=== PATIENT | male | born 2000 ===

== ENCOUNTER 2020-12-13 12:13 | Emergency (ER) | payer SELFPAY ==
[2020-12-13] MEDS ORDERED: ONDANSETRON 4 MG/2 ML INJ IV ONE (12:18)
[2020-12-13] MEDS ORDERED: HYDROmorphone 1 MG/1 ML INJ IV ONE ×2 (12:18→14:43)
--- NOTE | 2020-12-13 12:23 | Emergency Department Report ---
ED Fall HPI - General Stated Complaint: FALL Time Seen by Provider: 12/13/20 12:16 Source: patient Mode of arrival: Ambulatory Limitations: Language Barrier - History of Present Illness Initial Comments: Chief complaint: Fall off roof, arm injury HPI: This is a 20-year-old healthy male [id number] who is visiting from [facility]. He fell off a one-story roof while attempting to retrieve a soccer ball. He fell onto his right arm. He has severe pain at the upper portion of the arm. He has swelling. He is able to feel touch. He was brought by private auto. 10 out of 10 pain. He also has right sided pain in the neck and trapezius region. He denies chest pain. He denies shortness of breath. He denies abdominal pain. Patient did have head trauma. He stated his head strike the pavement. However he denies loss of consciousness or current headache. No significant past medical history. No history of surgeries. Patient does not take any medications. No known allergies. Patient smokes socially. He also drinks socially. He is a University student studying physical education. Patient's primary language is French. ED staff member provided French interpretation. Complaint: fall -: Sudden, This afternoon (Just prior to arrival) Fall From: from height (distance) (One-story [place]) When Fall Occurred: 1 hour [employer] Fall Witnessed: yes, by family Place Fall Occurred: home Prolonged Down Time?: no Symptoms Prior to Fall: none Location: other (Right arm) Location - Extremities: Right: Arm Severity: severe Severity scale (0 -10): 10 Quality: aching Context: tripped/slipped Associated Symptoms: other (Neck pain) - Related Data Allergies Allergy/AdvReac Type Severity Reaction Status Date / Time No Known Allergies Allergy Unverified 12/13/20 12:31 ED Review of Systems ROS: Stated complaint: FALL Other details as noted in HPI Comment: All other systems reviewed and negative Constitutional: denies: fever, malaise Respiratory: denies: cough, shortness of breath Cardiovascular: denies: chest pain Gastrointestinal: denies: abdominal pain, nausea, vomiting ED Past Medical Hx - Past Medical History Previous Medical History?: No - Surgical History Past Surgical History?: No - Social History Smoking Status: Current Some Day Smoker Substance Use Type: Alcohol ED Physical Exam - General Limitations: Language Barrier General appearance: alert, in no apparent distress, other (in obvious severe pa in) - Head Head exam: Present: atraumatic, normocephalic - Eye Eye exam: Present: normal appearance - ENT ENT exam: Present: mucous membranes moist - Neck Neck exam: Present: normal inspection, full ROM. Absent: tenderness, meningismus - Respiratory Respiratory exam: Present: normal lung sounds bilaterally. Absent: respiratory distress, wheezes, rales, rhonchi - Cardiovascular Cardiovascular Exam: Present: regular rate, normal rhythm, normal heart sounds. Absent: systolic murmur, diastolic murmur, rubs, gallop - GI/Abdominal GI/Abdominal exam: Present: soft, normal bowel sounds. Absent: distended, tenderness, guarding, rebound - Rectal Rectal exam: Present: deferred - Expanded Upper Extremity Exam Right Shoulder Exam: Present: tenderness, deformity Upper Arm exam: Present: tenderness, swelling, other (Edematous tense right upper arm obvious deformity shortened compressible compartments). Absent: abrasion, laceration, ecchymosis, crepidus, dislocation, erythema Elbow exam: Present: tenderness. Absent: abrasion, laceration, ecchymosis Forearm Wrist exam: Present: normal inspection, full ROM. Absent: tenderness Hand Wrist exam: Present: normal inspection, full ROM, other (2+ radial pulse) - Back Exam Back exam: Present: normal inspection - Neurological Exam Neurological exam: Present: alert, oriented X3 - Psychiatric Psychiatric exam: Present: normal affect, anxious - Skin Skin exam: Present: warm, dry, intact, normal color. Absent: rash - Other Other exam information: 2+ radial pulse in the right upper extremity: Patient is able to spread fingers make a fist grab hand with the affected right upper extremity ED Course Vital Signs 12/13/20 12/13/20 12/13/20 12:12 12:19 14:15 Temperature 98.8 F Pulse Rate 74 71 64 Respiratory 18 14 11 L Rate Blood Pressure 172/102 Blood Pressure 128/85 130/75 [Left] O2 Sat by Pulse 100 100 99 Oximetry 12/13/20 16:00 Temperature Pulse Rate 89 Respiratory 17 Rate Blood Pressure Blood Pressure 121/57 [Left] O2 Sat by Pulse 99 Oximetry ED Medical Decision Making - Lab Data Result diagrams: 12/13/20 13:40 12/13/20 13:40 - Radiology Data Radiology results: report reviewed, image reviewed RIGHT HUMERUS 2 VIEWS INDICATION: fall off roof, upper arm deformity. COMPARISON: No relevant prior imaging study available. FINDINGS: There is displaced butterfly-type fracture through the mid to distal shaft of the right humerus. The 8-9 cm fracture fragment along the medial cortex is slightly displaced from the underlying humerus. There is mild angulation at the fracture. No foreign bodies. IMPRESSION: 1. Butterfly-type right humerus fracture. CHEST 1 VIEW INDICATION: fall off roof, upper arm deformity. COMPARISON: None. FINDINGS: Support devices: None. Heart: Normal. Lungs/Pleura: No acute pulmonary or pleural findings. IMPRESSION: 1. No acute finding Forearm right forearm radiograph: No acute fracture or subluxation according to radiology impression CT cervical spine: No acute process no acute cervical spine fracture CT head no acute intracranial findings according to radiology impression - Medical Decision Making Fall from 1 story roof with obvious right arm injury: Patient was placed on spine board immediately upon arrival. Patient has cervical collar placed by provider triage. Upon arrival primary survey revealed normal spinal exam. No spinal tenderness or subluxation of cervical thoracic lumbar regions. Patient was logrolled with C-spine in place. Spine was removed. Patient received immediate analgesia while awaiting for complete registration. I discussed case with Dr. Olivarez orthopedic surgeon on-call. He recommended coaptation splint. He anticipated that the patient will need outpatient surgery. Dr. Olivarez also reassured me that this injury is at low risk for compartment syndrome. Coaptation splint was applied to the right upper extremity under my supervision. After application the extremity was neurovascularly intact with acceptable alignment. Extensive instruction and education provided to patient using French i nterpreter. Appointment has been made with Dr. Olivarez for Thursday 10 AM. Preop labs were obtained in order to expedite outpatient surgery. Leukocytosis nonspecific without indication of infection. Likely reactive leukocytosis due to sympathetic surge. Patient is discharged home. Critical Care Time: Yes Critical care time in (mins) excluding proc time.: 40 Critical care attestation.: If time is entered above; I have spent that time in minutes in the direct care of this critically ill patient, excluding procedure time. 40 minutes of critical care time excluding procedures were used in the care of the patient. I came immediately to the bedside upon patient's arrival. I obtained history from family member at the bedside. I discussed treatment plan with the nursing team members. I kept the family members informed. Patient required multiple interventions and reassessments. I was concerned for multisystem organ trauma. I was concerned for possible head neck injury. I was also concerned for pneumothorax patient's rapid breathing. I was unable to attend to other patients during the initial primary survey. ED Disposition Clinical Impression: Closed fracture of humerus, Fall from roof, Neck strain, Closed head injury Disposition: TO HOME OR SELFCARE Is pt being admited?: No Does the pt Need Aspirin: No Condition: Stable Instructions: Humerus Fracture Treated With ORIF Additional Instructions: Appointment Thursday December 19, 2019 10:00 AM Referrals: FLORIDALMA OLIVAREZ MD [Staff Physician] - 3-5 Days Print Language: SLOVENIAN
[2020-12-13] MEDS ORDERED: HYDROmorphone 2 MG/1 ML INJ IV ONE (12:33)
--- NOTE | 2020-12-13 12:53 | XRay Report ---
RIGHT HUMERUS 2 VIEWS INDICATION: fall off roof, upper arm deformity. COMPARISON: No relevant prior imaging study available. FINDINGS: There is displaced butterfly-type fracture through the mid to distal shaft of the right humerus. The 8-9 cm fracture fragment along the medial cortex is slightly displaced from the underlying humerus. T here is mild angulation at the fracture. No foreign bodies. IMPRESSION: 1. Butterfly-type right humerus fracture. CHEST 1 VIEW INDICATION: fall off roof, upper arm deformity. COMPARISON: None. FINDINGS: Support devices: None. Heart: Normal. Lungs/Pleura: No acute pulmonary or pleural findings. IMPRESSION: 1. No acute findings. Signer Name: Cheng Kaur MD Signed: 12/13/2020 12:48 PM Workstation Name: [email or web address]
--- NOTE | 2020-12-13 13:20 | XRay Report ---
RIGHT FOREARM 2 VIEWS INDICATION / CLINICAL INFORMATION: fall off roof upper arm deformit COMPARISON: None available. FINDINGS: BONES / JOINT(S): No acute fracture or subluxation. No significant arthritis. SOFT TISSUES: No significant abnormality. ADDITIONAL FINDINGS: None. Signer Name: Carrillo Kruger MD Signed: 12/13/2020 1:16 PM Workstation Name: [id number]
--- NOTE | 2020-12-13 13:41 | Cat Scan Report ---
CT head without contrast INDICATION: Fall off roof TECHNIQUE: Axial images were performed from skull base to vertex without contrast FINDINGS: There is no acute intracranial hemorrhage. Ventricles are normal in size without midline sh ift or mass effect. No extra-axial fluid collection is seen. Visualized orbits appear normal. IMPRESSION: No acute intracranial findings. CT cervical spine without contrast INDICATION: Fall TECHNIQUE: Axial coronal and sagittal images were performed. FINDINGS: No significant loss of vertebral body height. No prevertebral soft tissue swelling is ident ified. Occipital condyles are normal mild degenerative change anterior superiorly at C6. Facets are w ell aligned throughout. IMPRESSION: No acute cervical spine fracture. Signer Name: Morteza Lowery MD Signed: 12/13/2020 1:36 PM Workstation Name: [id number]
[2020-12-13 13:53] LABS: Basophils % (Auto) 0.2 % (0.0-1.8); Eosinophils % (Auto) 0.3 % (0.0-4.3); Hematocrit 41.8 % (35.5-45.6); Hemoglobin 14.7 gm/dl (11.8-15.2); Lymphocytes # (Auto) 1.3 K/mm3 (1.2-5.4); Lymphocytes % (Auto) 9.3 % (13.4-35.0); Mean Corpuscular HGB Conc 35 % (32-34); Mean Corpuscular Volume 90 fl (84-94); Monocytes # (Auto) 0.7 K/mm3 (0.0-0.8); Platelet Count 280 K/mm3 (140-440); Red Blood Count 4.67 M/mm3 (3.65-5.03); Red Cell Distribution Width 12.9 % (13.2-15.2)
[2020-12-13 14:03] LABS: INR 0.96 (0.87-1.13)
[2020-12-13 14:04] LABS: Partial Thromboplastin Time 25.5 Sec. (24.2-36.6)
[2020-12-13 14:11] LABS: Blood Urea Nitrogen 13 mg/dL (9-20); Calcium 9.3 mg/dL (8.4-10.2); Hemolysis Index 6
[2020-12-13 14:12] LABS: BUN/Creatinine Ratio 19
[2020-12-13] MEDS ORDERED: oxyCODONE /ACETAMINOPHEN 5-325MG TAB PO ONE (14:33)
[2020-12-13] MEDS ORDERED: HYDROmorphone 1 MG/1 ML INJ ONE (14:43)
[2020-12-13 16:11] VITALS: BP 121/57
== END 2020-12-13 17:00 | disposition home or self-care (01) ==
LOC: ED 12:13
DX: S16.1XXA Strain of muscle, fascia and tendon at neck level, initial encounter (principal); S09.90XA Unspecified injury of head, initial encounter; S42.301A Unspecified fracture of shaft of humerus, right arm, initial encounter for closed fracture; F17.200 Nicotine dependence, unspecified, uncomplicated; W18.30XA Fall on same level, unspecified, initial encounter; Y93.89 Activity, other specified; Y92.89 Other specified places as the place of occurrence of the external cause; Y99.8 Other external cause status
CPT/HCPCS: 29105; 36415; 70450; 71045; 72125; 73060; 73090; 80048; 85025; 85610; 85730; 96374; 96375; 96376; 99284; J1170; J2405

== ENCOUNTER 2020-12-14 10:46 | Emergency (ER) | payer SELFPAY ==
[2020-12-14 11:01] VITALS: BP 142/86
[2020-12-14] MEDS ORDERED: HYDROmorphone 1 MG/1 ML INJ IV ONE ×3 (11:20→13:05)
[2020-12-14] MEDS ORDERED: ONDANSETRON 4 MG/2 ML INJ IV ONE (11:20)
--- NOTE | 2020-12-14 11:27 | Emergency Department Report ---
Upper Extremity - HPI Chief Complaint: Extremity Problem,Nontraumatic Stated Complaint: RT HAND Time Seen by Provider: 12/14/20 11:07 Upper Extremity: Right Arm Occurred When: 1 Day Mechanism: Other (humerus fracture fall from roof) Symptoms: Yes Pain with Movement, Yes Deformity, Yes Numbness, Yes Swelling Other History: Chief complaint: "Doc I feel bad. I'm sorry.". HPI: This is a 20-year-old male with a significant past medical history who returns to the emergency department after treatment on yesterday. I evaluated this patient after fall from roof. Diagnosed patient with comminuted midshaft butterfly fracture of the right humerus. Patient has discoloration of right hand as well as swelling and pain. Patient also desires COVID-19 test in order to return back to [facility]. He desires to change his flight from December 29 to a center departure in order to have operative intervention on his humeral fracture. Triage nurse remove splint. Patient has left hand pain after splint was removed. Triage nurse informed charge nurse that right hand was cold with splint in place.. ED Review of Systems ROS: Stated complaint: RT HAND Other details as noted in HPI Comment: All other systems reviewed and negative Constitutional: denies: fever Respiratory: denies: cough, shortness of breath Neurological: numbness, paresthesias ED Past Medical Hx - Past Medical History Previous Medical History?: No - Surgical History Past Surgical History?: No - Social History Smoking Status: Never Smoker Substance Use Type: None - Medications Home Medications: Home Medications Medication Instructions Recorded Confirmed Last Taken Type oxyCODONE /ACETAMINOPHEN [Percocet 1 tab PO Q4HR PRN #30 tab 12/13/20 Unknown Rx 5/325] Upper Extremity Exam - Exam General: Vital signs noted. No distress. Alert and acting appropriately. Right upper extremity: Edematous but compressible, 2+ radial pulse distally median ulnar radial nerves intact normal hand coloration Head and Torso: No HEENT Abnormality, No Neck Tenderness, No Chest/Lungs Abnormality, No Abdominal Tenderness, No Back Tenderness Shoulder Exam: Yes Normal Range of Motion in Shoulder, No Shoulder Tenderness, No Clavicle Tenderness, No Shoulder Deformity, No AC Joint Tenderness Arm Exam: Yes Arm/Humerus Tenderness, Yes Arm Deformity Elbow: Yes Normal Range of Motion in Elbow, No Elbow Tenderness, No Elbow Deformity Forearm: Yes Pain with Pronation, Yes Pain with Supination, No Forearm Tenderness, No Forearm Deformity Wrist: Yes Normal ROM in Wrist, No Wrist Tenderness, No Wrist Deformity, No Snuffbox Tenderness, No Pain with Axial Thumb Compression Hand: Yes Normal ROM in Digit(s), No Hand Tenderness, No Hand Deformity, No Digit Tenderness, No Digit(s) Deformity, No Tendon Dysfunction CMS Exam: Yes Normal Distal Pulses, Yes Normal Capillary Refill, Yes Normal Distal Sensation, No Broken Skin ED Course Vital Signs 12/14/20 10:49 Temperature 98.9 F Pulse Rate 79 Respiratory 18 Rate Blood Pressure 142/86 O2 Sat by Pulse 99 Oximetry ED Medical Decision Making - Radiology Data Radiology results: report reviewed, image reviewed RIGHT HUMERUS 2 VIEWS INDICATION: pain swelling humerus fracture. COMPARISON: None. IMPRESSION: A mildly displaced and angulated fracture is identified in the mid shaft of the humerus. A butterfly fragment is identified measuring 9.8 cm. No calcified callus. There is normal articulation at the shoulder and elbow. - Medical Decision Making This is a 20-year-old male with butterfly humerus midshaft fracture after fall from roof on yesterday. Patient's pain and swelling improved after splint removal. Skin is intact. Right upper arm edematous but compressible. Extremity is neurovascularly intact. I reassessed patient. Patient has soft compressible compartments. He is pain- free. Extremity is neurovascularly intact. I discussed case with orthopedic surgeon and trauma surgeon at [facility]. Without risk of vascular compromise such as compartment syndrome, transfer is not indicated. Patient has COVID-19 test planned for today in order to expedite his return to [facility]. Median ulnar radial nerves intact. 2+ radial pulse. Coaptation splint was applied to the affected extremity under my supervision. After application the extremity was neurovascularly intact with acceptable alignment. Patient encouraged to keep extremity elevated. Critical care attestation.: If time is entered above; I have spent that time in minutes in the direct care of this critically ill patient, excluding procedure time. ED Disposition Clinical Impression: Closed fracture of humerus, Fall from roof Disposition: -01 TO HOME OR SELFCARE Is pt being admited?: No Does the pt Need Aspirin: No Condition: Stable Instructions: Humerus Fracture Treated With ORIF, Humerus Fracture Treated With ORIF, Care After Referrals: FLORIDALMA BOWSER MD [Staff Physician] - 3-5 Days Print Language: NEPALI
--- NOTE | 2020-12-14 12:18 | XRay Report ---
RIGHT HUMERUS 2 VIEWS INDICATION: pain swelling humerus fracture. COMPARISON: None. IMPRESSION: A mildly displaced and angulated fracture is identified in the mid shaft of the humerus. A butterfly fragment is identified measuring 9.8 cm. No calcified callus. There is normal articulat ion at the shoulder and elbow. Signer Name: Diego King Jr, MD Signed: 12/14/2020 12:13 PM Workstation Name: [id number]
== END 2020-12-14 14:38 | disposition home or self-care (01) ==
LOC: ED 10:46
DX: S42.301A Unspecified fracture of shaft of humerus, right arm, initial encounter for closed fracture (principal); Z79.899 Other long term (current) drug therapy; W13.2XXA Fall from, out of or through roof, initial encounter; Y93.89 Activity, other specified; Y92.89 Other specified places as the place of occurrence of the external cause; Y99.8 Other external cause status
CPT/HCPCS: 29105; 73060; 96374; 96375; 96376; 99283; J1170; J2405

== ENCOUNTER 2020-12-14 22:30 | Emergency (ER) | payer SELFPAY ==
[2020-12-15] MEDS ORDERED: NEOMY 3.5 MG/BACIT 400 UNITS/POLY B 5000 UNITS/GM OINT PACKET TP ONE (01:05)
[2020-12-15] MEDS ORDERED: IBUPROFEN 600 MG TAB PO ONE (01:05)
--- NOTE | 2020-12-15 01:07 | Emergency Department Report ---
<ABRAHAM BURNSSHOBHA Regalado - Last Filed: 12/15/20 02:29> ED General Adult HPI - General Chief complaint: Extremity Injury, Upper Stated complaint: BROKEN ARM Time Seen by Provider: 12/15/20 00:51 - Related Data Previous Rx's Medication Instructions Recorded Last Taken Type oxyCODONE /ACETAMINOPHEN [Percocet 1 tab PO Q4HR PRN #30 tab 12/13/20 Unknown Rx 5/325] Ibuprofen [Motrin] 800 mg PO Q8HR PRN #30 tablet 12/15/20 Unknown Rx cephALEXin [Keflex] 500 mg PO Q8HR #21 cap 12/15/20 Unknown Rx Allergies Allergy/AdvReac Type Severity Reaction Status Date / Time No Known Allergies Allergy Unverified 12/13/20 12:31 ED Past Medical Hx - Medications Home Medications: Home Medications Medication Instructions Recorded Confirmed Last Taken Type oxyCODONE /ACETAMINOPHEN [Percocet 1 tab PO Q4HR PRN #30 tab 12/13/20 Unknown Rx 5/325] Ibuprofen [Motrin] 800 mg PO Q8HR PRN #30 tablet 12/15/20 Unknown Rx cephALEXin [Keflex] 500 mg PO Q8HR #21 cap 12/15/20 Unknown Rx ED Course - Reevaluation(s) Reevaluation #1: I reviewed the findings and management of this patient in real-time and I have personally seen and examined this patient and participated in the decision making for this patient with the midlevel. Patient is a 20-year-old male that presents for increased pain in his right upper extremity. Patient states he feels like the splint is very tight. Patient states that he is leaving for [facility] today to see an orthopedist. Patient states he has an appointment as soon as he lands in [facility]. Patient states that his pain decreased once we remove the splint. Patient has an abrasion to the elbow. I examined the patient. Patient has normal temperature to the right upper extremity. Patient has normal coloration to his right upper extremity. Patient has normal cap refill. Patient's lung sounds are clear. Patient's CV exam is within normal limits. Patient has full range of motion of his fingers. Patient was placed on a prophylactic antibiotic since we are covering the abrasion with the splint.. Patient is not allergic to any antibiotics. I placed the splint to the right upper extremity. A posterior splint was placed. Patient had good cap refill and no increase in pain with the splint. Patient has pain medications already. Patient instructed to take ibuprofen and the prophylactic antibiotics. I discussed all results and clinical findings with patient. I discussed plan of care with patient. Patient agrees with plan of care. Patient is stable for discharge. Patient will be discharged home. Patient given discharge instructions. Patient voiced understanding of discharge instructions. 12/15/20 02:31 - Orthopedic Splinting/Casting Injury #1 Side: right Upper Extremity Injury Location: upper arm Upper Extremity Immobilizer: posterior splint Additional Comments: Posterior long-arm placed to the right arm. Good cap refill before and after splint placement. Patient had no signs of compartment syndrome prior to placing the splint. Patient had normal temperature skin. Patient had normal pain with palpation. Patient had good pulses and good skin color. Patient had good pulses after splint placement. Patient had normal skin tone and his exposed fingers. ED Disposition Clinical Impression: Closed fracture of humerus Disposition: DC- TO HOME OR SELFCARE Condition: Stable Instructions: Humerus Fracture Treated With Immobilization, [id number] Additional Instructions: It is important that you follow-up with validation specialist as soon as you get to [facility]. Do not remove the splint or get it wet. Keep it in the sling. Take the Motrin and the oxycodone and antibiotic as prescribed. Return to the ER if your symptoms changes or worsens in any way. Prescriptions: cephALEXin [Keflex] 500 mg PO Q8HR #21 cap Ibuprofen [Motrin] 800 mg PO Q8HR PRN #30 tablet PRN Reason: Pain , Severe (7-10) Referrals: PRIMARY CARE, [Primary Care Provider] - 3-5 Days Print Language: TURKMEN <EMEKA TORRES - Last Filed: 12/15/20 02:51> ED General Adult HPI - General Source: patient Mode of arrival: Ambulatory Limitations: No Limitations - History of Present Illness Initial comments: 20-year-old male presents to the ER today complaining that his coaptation splint which was applied earlier this morning is too tight. Patient was seen here earlier today after an accidental fall which resulted in a butterfly midshaft humerus fracture. At the time there was no indication for transfer to a trauma center. Patient also reported that he plans on returning to [facility] today, and was going to see an validation specialist on return to [facility]. A coaptation splint was applied, patient was neurovascularly intact after splint application, patient was given a sling, he was given Rx for pain, and he was discharged in stable condition. Patient returns this evening stating that he remove the splint because it was too tight. He has an abrasion to his right elbow, and he was concerned that it was infected because it has been having some mild yellow discharge. Reports no worsening pain, numbness tingling or weakness or skin discoloration. He denies any new injury since he was seen earlier today. MD Complaint: Splint too tight -: days(s) (1) ED Review of Systems ROS: Stated complaint: BROKEN ARM Other details as noted in HPI Comment: All other systems reviewed and negative Constitutional: denies: chills, fever Respiratory: denies: cough, shortness of breath, wheezing Cardiovascular: denies: chest pain, palpitations Musculoskeletal: joint swelling, arthralgia, myalgia Skin: other (Abrasion to right elbow) Neurological: denies: weakness, numbness, paresthesias Hematological/Lymphatic: denies: easy bleeding, easy bruising ED Past Medical Hx - Past Medical History Previous Medical History?: No - Surgical History Past Surgical History?: No - Social History Smoking Status: Never Smoker Substance Use Type: None ED Physical Exam - General Limitations: No Limitations General appearance: alert, in no apparent distress - Head Head exam: Present: atraumatic, normocephalic, normal inspection - Respiratory Respiratory exam: Absent: respiratory distress - Cardiovascular Cardiovascular Exam: Present: regular rate - Neurological Exam Neurological exam: Present: alert, oriented X3, CN II-XII intact, normal gait - Skin Skin exam: Present: intact - Other Other exam information: Right upper extremity: Patient has moderate swelling diffusely from the right shoulder all the way down to his fingers. Swelling is a little bit tighter on the mid to distal right humerus area but otherwise swelling is soft to the remaining right upper extremity. He has moderate tenderness to palpation from the mid to distal aspect of the right upper arm. Range of motion of the right shoulder and the right elbow significantly reduced due to worsening pain. He does have a superficial abrasion to the posterior elbow in the right, she is draining some mild clear yellow fluid but no pus, no induration or cellulitis. There is no ecchymosis, or pallor noted to the right upper extremity. Temperature to the right upper extremity normal compared to the other extremity and the rest of his body. Cap refill normal. Radial ulnar pulses are normal. Sensation over the right upper extremity normal. ED Medical Decision Making - Medical Decision Making Reviewed previous ER visit and x-ray report. Case discussed with Dr. Partida, who also examined and evaluated patient. No evidence of compartment syndrome, significant cellulitis or infection at this time. Agree with long posterior arm splint, sling and recommend giving patient Rx for Motrin and prophylactic oral antibiotics. Patient instructed that it is important that he follows up with validation specialist when he gets to [facility]. Also recommends that he keeps his arm in the sling as much as possible. Patient expressed understanding of instructions and agree with plan. Patient was stable at time of discharge. 0236: Splint applied and post splint re-assesment done by Dr Coe, see his note for details. Critical care attestation.: If time is entered above; I have spent that time in minutes in the direct care of this critically ill patient, excluding procedure time. ED Disposition Is pt being admited?: No Does the pt Need Aspirin: No Time of Disposition: 02:39
[2020-12-15 03:21] VITALS: BP 115/55
== END 2020-12-15 03:23 | disposition home or self-care (01) ==
LOC: ED 22:30
DX: S42.301A Unspecified fracture of shaft of humerus, right arm, initial encounter for closed fracture (principal); Z79.899 Other long term (current) drug therapy; X58.XXXA Exposure to other specified factors, initial encounter; Y93.89 Activity, other specified; Y92.89 Other specified places as the place of occurrence of the external cause; Y99.8 Other external cause status
CPT/HCPCS: 29105; 99282; A6250